=== PATIENT | female | born 1955 | race Caucasian/White ===

== ENCOUNTER 2018-01-15 11:46 | Day surgery (SDC) | payer OTHER ==
[2018-01-15] MEDS ORDERED: PROPOFOL 20 ML (16:06)
[2018-01-15] MEDS ORDERED: FENTAnyl 50 MCG/ML VIAL (16:06)
== END 2018-01-15 17:00 | disposition home or self-care (01) ==
LOC: GIL 11:46
DX: Z12.11 Encounter for screening for malignant neoplasm of colon (principal); K64.8 Other hemorrhoids; K57.90 Diverticulosis of intestine, part unspecified, without perforation or abscess without bleeding; R73.03 Prediabetes
CPT/HCPCS: 45378